=== PATIENT | male | born 1960 | race Caucasian/White ===

== ENCOUNTER → 2016-03-06 | Outpatient (CLI) | payer OTHER ==
--- NOTE | 2016-03-07 07:18 | XR ---
EXAMINATION TYPE: XR finger RT DATE OF EXAM: 03/06/2016 5:05 PM COMPARISON: NONE HISTORY: Pain and swelling FINDINGS: The osseous structures are intact. The joint spaces are preserved and there is no acute fracture or dislocation. Soft tissue edema noted. IMPRESSION: 1. No definite acute fracture or dislocation if symptoms persist, follow-up study in 7 to 10 days wo uld be suggested
== END | disposition home or self-care (01) ==
LOC: RADXRYALE 16:55
PROVIDERS: ATTEND Family Medicine
DX: S69.91XA Unspecified injury of right wrist, hand and finger(s), initial encounter (principal)

== ENCOUNTER → 2016-03-23 | Outpatient (CLI) | payer OTHER ==
--- NOTE | 2016-03-23 23:22 | MR ---
EXAMINATION TYPE: MR hand RT wo con DATE OF EXAM: 03/23/2016 6:04 PM COMPARISON: NONE HISTORY: Pain swelling redness with limited movement for 3 months, Pain primarily in 2nd digit proxim al to hand Standard multiplanar, multisequence MRI departmental protocol Multiplanar, multisequence images of the right hand were acquired. Diffusion weighted imaging was per formed. FINDINGS: The metacarpals appear intact. I see no bony destructive process. There is mild subcutaneou s edema around the proximal phalanx of the index finger. I see no fracture line. There is evidence of a mild joint effusion at the PIP joint of the index finger. Joint spaces appear normal. There is no evidence of soft tissue mass. The flexor and extensor tendons of the hand appear intact. IMPRESSION: There is mild subcutaneous edema around the proximal phalanx of the index finger. No fracture seen. S mall joint effusion at the PIP joint. This could relate to some synovitis. No tendon abnormality seen .
== END | disposition home or self-care (01) ==
LOC: RADMRIMAIN 17:10
PROVIDERS: ATTEND Family Medicine
DX: S69.91XA Unspecified injury of right wrist, hand and finger(s), initial encounter (principal)

== ENCOUNTER → 2021-12-22 | Outpatient (CLI) | payer OTHER ==
--- NOTE | 2021-12-22 09:34 | XR ---
Right shoulder HISTORY: Pain 3 views of the right shoulder Bone mineralization, joint spaces and alignment are maintained. Acromioclavicular joint shows arthrop athy. There may be distal acromial spur. Right lung apex as visualized is normal. Distal acromion is downturned. IMPRESSION: Correlate for impingement. Shoulder MRI may be of benefit.
== END | disposition home or self-care (01) ==
LOC: RADXRYALE 08:45
PROVIDERS: ATTEND Family Medicine
DX: M25.511 Pain in right shoulder (principal)

== ENCOUNTER → 2022-09-04 | Outpatient (CLI) | payer OTHER ==
--- NOTE | 2022-09-04 11:44 | XR ---
EXAMINATION TYPE: XR chest 2V DATE OF EXAM: 09/04/2022 COMPARISON: NONE TECHNIQUE: PA and lateral views submitted. HISTORY: Pain FINDINGS: The lungs are clear and there is no pneumothorax, pleural effusion, or focal pneumonia. Heart size normal and no overt failure. Osseous structures demonstrate hypertrophic and degenerative changes of the spine. Bilateral severe AC joint arthropathy. IMPRESSION: 1. No acute process.
== END | disposition home or self-care (01) ==
LOC: RADXRYALE 11:28
PROVIDERS: ATTEND Family Medicine
DX: R07.89 Other chest pain (principal)
CPT/HCPCS: 71046

== ENCOUNTER 2023-03-14 08:54 | Day surgery (SDC) | payer OTHER ==
[2023-03-09 10:39] VITALS: BMI 34.9
[~2023-03-14 08:54] MED LIST: ALPRAZolam 0.25 MG TAB PO PRN; ALPRAZolam 0.5 MG TAB PO PRN; ASPIRIN 325 MG TAB PO ONE; HEPARIN SODIUM,PORCINE (1 ML) 2,500 UNIT in SODIUM CHLORIDE 0.9% 250 ML IRRIGATION PRN; HEPARIN SODIUM,PORCINE 10,000 UNIT in SODIUM CHLORIDE 0.9% 1,000 ML IRRIGATION PRN; NITROGLYCERIN SL TABS 0.4 MG TAB SUBLINGUAL PRN; SODIUM CHLORIDE 0.9% 1,000 ML in EMPTY BAG 1 BAG IV SCH
[2023-03-14 09:14] VITALS: RESP 18; TEMP 97.4
[2023-03-14] MEDS ORDERED: VERAPAMIL 2.5 MG/ML 2 ML AMP ONE (10:32)
[2023-03-14] MEDS ORDERED: HEPARIN SODIUM 1,000 UN/ML (10ML VL) ONE (10:33)
[2023-03-14] MEDS ORDERED: fentaNYL (PF) 50 MCG/ML 2 ML AMP ONE (10:33)
[2023-03-14] MEDS: MIDAZOLAM 2 MG/2 ML VIAL IVP ONE ×2 (10:45→10:56)
[2023-03-14] MEDS: fentaNYL (PF) 50 MCG/ML 2 ML AMP IVP ONE ×2 (10:45→10:56)
[2023-03-14] MEDS ORDERED: LIDOCAINE 2% (PF) 20 MG/ML 5 ML VIAL SQ ONE (10:46)
[2023-03-14] MEDS ORDERED: VERAPAMIL SYRINGE (5 MG/10 ML) INTRAARTER ONE (10:48)
[2023-03-14] MEDS ORDERED: HEPARIN SODIUM 1,000 UN/ML (10ML VL) IVP ONE (10:52)
[2023-03-14] MEDS ORDERED: ADENOSINE 90 MG in SODIUM CHLORIDE 0.9% 60 ML IVP ONE (11:16)
[2023-03-14] MEDS ORDERED: IOPAMIDOL-370 100ML BTL INJ ONE (11:19)
--- NOTE | 2023-03-14 11:29 | P.CARDCATH ---
Description of Procedure: PROCEDURES PERFORMED: Left heart catheterization, bilateral coronary angiography, ultrasound guided arterial access, iFR, FFR, CFR INDICATION: Abnormal stress test CONSENT:I have discussed the risks, benefits and alternative therapies for the above-mentioned procedure and for both sedation/analgesia as well as necessary blood product administration, if indicated, as they pertain to this patient. The patient has indicated understanding and acceptance of the risks and procedures discussed. PROCEDURE: After the risks, benefits and alternatives of the above mentioned procedure explained in detail with the patient, informed consent was obtained. Patient was taken to the catheterization lab and prepped and draped in usual fashion. Ultrasound guidance was used to assess for arterial access. 1% lidocaine was used to anesthetize the right radial artery. A 6-Filipino sheath was placed in the right radial artery using modified Seldinger technique and ultrasound guidance. Left coronary angiography was performed with a 5-Filipino JL 4.0 catheter and right coronary angiography was performed with a 5-Filipino AR2 catheter in various views. A 5-Filipino AR2 catheter was inserted into the left ventricle and pressure measurements were obtained. The decision was made to perform functional assessment of the LAD as well as microvasculature. Heparin was given for ACT greater than 250 A 6-Filipino FL 4.0 guide was easily engage the left main. A 0.014 pressure wire was advanced in the proximal left main and normalized. The wire was then placed in the mid LAD, 1 cm distal to the mid LAD lesion. iFR was performed and was normal at 0.96. Next hyperemia was achieved with adenosine infusion. Pre and post hyperemia injections were performed to evaluate CFR/IMR. FFR was 1.2, CFR was normal at 6.5, and IMR was normal at 12. The wire was pulled. The right radial sheath was removed and a TR band was placed with hemostasis achieved. The patient tolerated the procedure well. Patient was transported back to the post catheterization holding area in stable condition. Conscious Sedation: Patient was monitored under the direct supervision of myself for conscious sedation using Versed and fentanyl for a total duration of 15 minutes HEMODYNAMICS: Aorta: 128/76 LV: 121/88, LVEDP 15 SELECTIVE CORONARY ARTERIOGRAPHY: LEFT MAIN: The left main is a large caliber vessel which bifurcates into the LAD and circumflex. There is no significant stenosis. LEFT ANTERIOR DESCENDING CORONARY ARTERY: LAD is a large caliber vessel which wraps around to the apex. There is a mid LAD 30-40% stenosis and otherwise normal. LEFT CIRCUMFLEX CORONARY ARTERY: Left circumflex is a moderate caliber vessel without significant stenosis. RIGHT CORONARY ARTERY: The right coronary artery is a large caliber vessel which gives off a PDA and PLV branch and is the dominant vessel. There is no significant stenosis. FINAL IMPRESSION: 1. Relatively normal coronary arteries as described above other than mid LAD 30-40% stenosis. 2. Normal left sided filling pressures 3. Normal iFR, FFR, CFR, IMR of the LAD PLAN: 1. Aggressive risk factor modification per most recent ACC/AHA guidelines. 2. No evidence of any epicardial or microvasculature dysfunction and evaluate for other noncardiac reasons for chest pain.
[2023-03-14 16:10] VITALS: PULSE 56
[2023-03-14 16:11] VITALS: BP 129/64
== END 2023-03-14 15:30 | disposition home or self-care (01) ==
LOC: CATHCVL 08:54
PROVIDERS: ATTEND Internal Medicine
DX: I25.10 Atherosclerotic heart disease of native coronary artery without angina pectoris (principal); E78.5 Hyperlipidemia, unspecified; G47.33 Obstructive sleep apnea (adult) (pediatric); F17.210 Nicotine dependence, cigarettes, uncomplicated; Z82.49 Family history of ischemic heart disease and other diseases of the circulatory system; Z79.890 Hormone replacement therapy; Z79.899 Other long term (current) drug therapy
CPT/HCPCS: 93571; 93458; 76937; 99152; C1887; C1769 ×2; C1894; J2250; J3010; J1644; J0153; Q9967; J2001

== ENCOUNTER → 2023-04-06 | Outpatient (CLI) | payer OTHER ==
--- NOTE | 2023-04-06 11:11 | CT ---
EXAMINATION TYPE: CT chest wo/w con CT DLP: 1058 mGycm, Automated exposure control for dose reduction was used. DATE OF EXAM: 04/06/2023 10:13 AM COMPARISON: 03/10/2011 CLINICAL INDICATION:Male, 63 years old with history of [id number] OBSTRUCTIVE SLEEP APNEA; TECHNIQUE: Multiple axial images were obtained through the chest. Sagittal and coronal reformats were created for review. Contrast used: mL of (None if empty) Oral contrast used: (None if empty) FINDINGS: LUNGS/ PLEURA: The lung parenchyma appears unremarkable. AIRWAY: Patent and unremarkable. HEART: Heart is within normal limits for size. There is coronary artery calcifications present. No ev idence for organizing fluid collection no free air. MEDIASTINUM: No gross evidence of adenopathy. VASCULATURE: No aortic aneurysm. The aortic arch and its branches are patent without evidence for di ssection or aneurysm. MUSCULOSKELETAL: Mild disc degeneration changes are present throughout the thoracolumbar spine. SOFT TISSUES/LYMPH NODES: Unremarkable. LOWER NECK: No significant findings. UPPER ABDOMEN: No significant findings. IMPRESSION: No evidence for acute process
== END | disposition home or self-care (01) ==
LOC: RADCTMAIN 09:19
PROVIDERS: ATTEND Family Medicine
DX: G47.33 Obstructive sleep apnea (adult) (pediatric) (principal); R06.02 Shortness of breath
CPT/HCPCS: 71270; Q9967